=== PATIENT | female | born 1985 | race Caucasian/White ===

== ENCOUNTER 2023-03-21 14:07 | Outpatient (AMB) | payer OTHER, SELFPAY ==
--- NOTE | 2023-03-21 14:14 | MHC.OFFVIS ---
Intake Vital Signs 03/21/23 14:15 03/21/23 15:23 Height 5 ft 3 in Weight 417 lb 12.415 oz BMI 74.0 BP 132/84 Blood Pressure Location Rt brachial Position Sitting Pulse 131 H 112 H Pulse Source Pulse Oximeter Auscultation Temp 97.5 F Temp Source Skin Pulse Oximetry (%) 97 Oxygen Delivery Method Room Air Intake Visit Reasons: fm Intake Note: New patient here for fibromyalgia. Seen once by [facility] for initial visit. c/o shooting pains on legs, elbows, arms. Muscle spams on legs and arms. Rayray ankle and feet swelling. Per patient, former Cocaine user, current marijuana user for pain and anxiety . 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 She had last been seen by Mr. Demetrice joy in June of 2021. The conclusion was that she had massive morbid obesity and fibromyalgia. She was treated with meloxicam 15 mg daily and cyclobenzaprine 5-10 mg b.i.d.. She admits she only takes these episodically. Unfortunately since that visit she has gained about 70 lb. She has had massive problems with weight before. She claims to have at one point lost 100 lb. She also has some leg edema that developed a few months ago. The cause of that is somewhat unclear although she admits she does not sleep very well at night and is often sleeping in a chair. She has a 3-year-old at home. She does do her own housework but has a fiancee at home. She does get tired and short of breath with exertion. This has worsened since she has gained weight. In the past she was told she had PTSD but she is on no medication and sees no therapist currently. She describes again widespread pains. This is particularly problematic in the right shoulder. She notes pain with any pressure over that region. She also has pain in the neck, the other shoulders, elbows, hands, lower back, buttock region, knees, and feet. She has difficulty walking it sounds like mostly because of right knee pain. No injury has been noted but she thinks it is occasionally swollen. She notes chronic ankle and pedal edema over the past 6 months. The pretibial areas are tender. She does not have any breakdown of the skin or ulcerations of the legs at this point. [facility] Medical History (Updated 03/21/23 @ 15:37 by Eugene Rodríguez MD) Anxiety and depression Fibromyalgia Surgical History Hx of cholecystectomy Family History (Updated 03/16/23 @ 15:36 by Matilde Flores 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 Her weight continues to increase. Negative for appetite change, fever, chills, malaise Eyes Details: Itchy eyes at times. Occasional headache. Negative for vision change, dry eyes and dizziness ENT Details: Occasional tinnitus. Negative for hearing change, oral ulcer, nose bleeds and oral dryness. Card Details: Ankle edema as noted above. She notes occasional palpitations. Negative chest pain and recent syncope Resp Details: Some exertional dyspnea at times. She does use an inhaler which help somewhat. Negative for sputum production cough and wheezing GI Details: Negative indigestion/heartburn, nausea, abdominal pain, bowel changes, diarrhea, constipation and bloody stool. Details: Nocturia x1. History of 2 early miscarriages. Negative for dysuria, hematuria, decreased force/flow and genital discharge Skin/Breast Details: Negative for itching, rash, hives, Raynaud's symptoms, sun sensitivity, and skin cancer Neuro Details: She gets some numbness in the feet with prolonged sitting. Negative for epilepsy, palsy, stroke, changes in speech, and weakness Psych Details: Anxious at times. History of PTSD treatment in the past. Negative for current depression and stress Endo Details: Negative for polyuria and polydypsia Patrick/Lymph Details: Negative for excessive bruising or bleeding. Physical Exam Vital Signs: Last Vital Signs Temp 97.5 F 03/21/23 14:15 Pulse 112 H 03/21/23 15:23 BP 132/84 03/21/23 14:15 Pulse Ox 97 03/21/23 14:15 Oxygen Delivery Method Room Air 03/21/23 14:15 BMI result Body Mass Index 74.0 APPEARANCE: Patient in no acute distress EYES no redness, pupils equal and reactive to light, eyelids normal EARS: External ear normal, canal clear and tympanic membrane normal. NOSE/SINUS: Airflow through both nares, no nasal discharge, no bleeding THROAT: Oral mucosa moist, no ulcerations NECK: No thyromegaly or masses, no adenopathy, trachea midline. HEART: Regulrar rhythm, S1-S2 heard, no murmurs, rubs or gallops. LUNG: Clear to percussion and auscultation ABD: Normal bowel sounds, no organomegaly, masses or tenderness. EXTREMITIES: 1+ ankle and pedal edema. No breaks in the skin. There is pretibial tenderness. Slight duskiness to the anterior tibial region. She has no calf tenderness, normal peripheral pulses. NEURO: Oriented and alert x3. No focal weakness. Reflexes symmetric. Gait normal. SKIN: No inflammatory or neoplastic lesions. Normal color and turgor JOINT EXAM:.?? Cervical Spine:.? Mild pain with extremes of motion. Some cervical muscle tenderness. Thoracic Spine:.? No scoliosis.? No tenderness on palpation. Lumbar Spine:.? Alignment normal.? Mild pain with flexion at 60 degrees. Mild muscle tenderness. Chest Wall:.? No tenderness, swelling, increased warmth or erythema. Hands:.? Normal pain-free range of motion with mild tenderness across the MCP joints but I can not appreciate any swelling. There is no flexor tendon triggering, thenar atrophy or sensory loss. Other joints in the hands are without tenderness, swelling, increased warmth or erythema.th. Wrists: Slight pain with flexion extension at 75 degrees with some minimal dorsal tenderness. No appreciable swelling, increased warmth or erythema. Elbows:. Normal pain-free range of motion without tenderness, swelling, increased warmth or erythema. Shoulders:.??Right: Mild to moderate pain with abduction at 100 degrees or any attempts at internal or external rotation. Mild anterior, posterior and subacromial tenderness. No axillary adenopathy. Questionable abductor weakness without swelling. Left: Full range of motion with slight discomfort at the extremes of normal range of motion. Minimal anterior and posterior tenderness without adenopathy, weakness, swelling, increased warmth or erythema. Hips:.? Full range of motion with mild buttock pain at the extremes of normal internal or external rotation. out pain. Hip bursa:.? Mild right greater than left trochanteric tenderness. Knees:.?? Right: Mild pain with extremes of normal range of motion. There is some mild patellofemoral crepitus and mild medial and lateral tenderness without effusion, redness or warmth. Left: Slight pain with extremes of flexion or extension with some minimal patellofemoral crepitus. There is some slight medial tenderness. No effusion, swelling, increased warmth or erythema.? There is no effusion or crepitation Ankles:.?There is some pretibial edema. She has normal pain-free range of motion. There is some pretibial tenderness but no tenderness over the joint space. I do not appreciate any any joint swelling, increased warmth or erythema.Normal pain-free range of motion without tenderness, swelling, increased warmth or erythema. Feet: There is some dorsal edema over the instep which is mildly tender. She has some flatfoot deformity with some mild tenderness across the MTP joints. No breaks in the skin, redness or warmth. Tender points: Mild tenderness to digital palpation at the occiput, trapezius, second rib, lateral epicondyle, knees, greater trochanter and gluteal area bilaterally. ? Results Reviewed Results Reviewed: [facility] Result Report Patient: Sonia Knight Date of Service: 04/21/22 ? ? Patient Gender: Female Ordering Provider: Citlalli Goins : 1985 ? ? ? Final X-RAY EXAM OF LOWER SPINE WITH OBLIQUES Exam Date: 04/21/2022 10:07 AM Ordering Diagnosis: Chronic bilateral low back pain without sciatica ? EXAM: Lumbar spine x-ray ? HISTORY: Chronic low back pain. ? COMPARISON: None ? FINDINGS: ? 4 views of the lumbar spine were performed. Exam limited by patient body habitus. ? 5 lumbar type vertebral bodies. Vertebral body heights are maintained. Mild disc space narrowing from L2-3 through L4-5. Limited assessment for pars defects and facet arthropathy on the oblique views. Possible facet arthropathy at L4-5 and L5-S1. No evidence of spondylolisthesis. T-shaped radiopaque IUD in the central pelvis. ? IMPRESSION IMPRESSION: ? Limited exam. Mild degenerative changes. ? POS - [id number] ? Reading Radiologist: Electronically signed by: Ewa Carmona MD [facility] Imaging Result Report Patient: Sonia Knight Date of Service: 04/28/22 ? ? Patient Gender: Female Ordering Provider: Janet Fernandez : 1985 ? ? ? Final X-RAY KNEE 4+ VIEW WITH INJURY Exam Date: 04/28/2022 10:24 AM Ordering Diagnosis: Pain in both knees, unspecified chronicity ? EXAM: Bilateral knee x-ray ? HISTORY: Bilateral knee pain. Buckling at times. No injury. ? COMPARISON: None ? VIEWS: 4 views of both knees performed. ? FINDINGS: ? Mild joint space narrowing in the medial compartments and lateral patellofemoral joints. Tricompartment marginal spurring. No evidence of an acute fracture or malalignment. Mild right superior patellar spurring at the quadriceps attachment from enthesopathy. No destructive bone lesion. No significant joint effusion. ? IMPRESSION IMPRESSION: ? Mild degenerative changes. ? POS - [id number] ? Reading Radiologist: Electronically signed by: Ewa Carmona MD o lab work from [place]: April 2021: Rheumatoid factor less than 10, ESR 18, ESHA negative April 2022: CRP 3.53, ferritin normal, TSH 2.23, iron binding percentage 11%, transaminases normal, hemoglobin 12.1, white count 11.7, ESR 52, creatinine 0.74, CCP antibody negative, HLA B27 negative, Assessment & Plan Assessment & Plan (1) Osteoarthritis of knees, bilateral: Code(s): M17.0 - Bilateral primary osteoarthritis of knee (2) Osteoarthritis of lumbar spine: Code(s): M47.816 - Spondylosis without myelopathy or radiculopathy, lumbar region (3) Edema: Code(s): R60.9 - Edema, unspecified (4) Shoulder pain, right: Code(s): M25.511 - Pain in right shoulder (5) Fibromyalgia: Code(s): M79.7 - Fibromyalgia Plan The patient has had many years now widespread pains. Exams have not noted any signs of an active inflammatory arthritis. However last fall there was elevation of the CRP and sed rate raising the question of inflammatory disease. She claims to have had COVID 4 times so this could have been some sequelae from those infections. The many tender points however currently look like she has fibromyalgia. She is massively obese and likely has some secondary osteoarthritis in the lower back and knees. X-rays have shown early OA in those regions. She has fairly painful range of motion the right shoulder suggesting some pathology in that region, this is likely to be mechanical from previous rotator cuff problems. She is short of breath with exertion, likely related to her morbid obesity. Now she has chronic ankle edema which could be related to respiratory problems, heart disease, or even renal disease. We will check some lab work to look into the question of renal disease. She is going to pursue some weight loss regimen and has plans to follow through with that. In the meantime, assuming her kidneys are okay I think she could continue with the meloxicam. She can take the cyclobenzaprine if needed at night. She is warned that could be sedating. We will add some low-dose gabapentin to that with 100 mg capsules, gradually increasing up to 1 in the morning and 3 at night over 3 or 4 weeks. Light aerobic activity is encouraged. We will aim for follow-up in 2 or 3 months. She may need further evaluation in primary care office about the ankle edema. Review of her records at [place], today's history, today's exam, and discussion of treatment options took 45 minutes. Orders: Orders Comprehensive Met. Panel Today M79.7 - Fibromyalgia, R60.9 - Edema, unspecified C Reactive Protein Today M79.7 - Fibromyalgia, R60.9 - Edema, unspecified Thyroid Stimulating Hormone Today M79.7 - Fibromyalgia, R60.9 - Edema, unspecified Protein Creatinine Ratio, Ur Today M79.7 - Fibromyalgia, R60.9 - Edema, unspecified Complete Blood Count Auto Diff Today M79.7 - Fibromyalgia, R60.9 - Edema, unspecified Erythrocyte Sedimentation Rate Today M79.7 - Fibromyalgia, R60.9 - Edema, unspecified XR shoulder RT min 2V Today M25.511 - Pain in right shoulder Medications: New gabapentin one at night for a week, then two at night for a week, then three at night for a week, then one in AM and 3 at night 120 caps 2RF Coding Level of Care Code Est Pt Level 5 (85697) Diagnoses Osteoarthritis of knees, bilateral M17.0 Osteoarthritis of lumbar spine M47.816 Edema R60.9 Shoulder pain, right M25.511 Fibromyalgia M79.7
[2023-03-21 14:15] VITALS: BP 132/84; PULSE 131; TEMP 36.4; O2SAT 97; BMI 74.0
[2023-03-21 15:23] VITALS: PULSE 112
== END 2023-03-21 15:44 | disposition home or self-care (01) ==
PROVIDERS: PCP Internal Medicine; Visit Provider Internal Medicine Rheumatology
DX: M79.7 Fibromyalgia (principal); M17.0 Bilateral primary osteoarthritis of knee; M47.816 Spondylosis without myelopathy or radiculopathy, lumbar region; R60.9 Edema, unspecified; M25.511 Pain in right shoulder
CPT/HCPCS: 99215

== ENCOUNTER → 2023-03-21 14:07 | Outpatient (BNVA) | payer OTHER, SELFPAY | PROVIDERS: Visit Provider Internal Medicine Rheumatology | DX: M17.0 Bilateral primary osteoarthritis of knee (principal); M47.816 Spondylosis without myelopathy or radiculopathy, lumbar region; M25.511 Pain in right shoulder; M79.7 Fibromyalgia; R60.9 Edema, unspecified; Z68.45 Body mass index [BMI] 70 or greater, adult | CPT/HCPCS: 99212 ==

== ENCOUNTER 2023-10-28 16:29 | Emergency (ER) | payer OTHER, SELFPAY ==
[2023-10-28] VITALS (10 sets, daily range): BP systolic 107–134; BP diastolic 60–89; PULSE 125–142; RESP 18–29; TEMP 36.1–36.8; O2SAT 64–95; BMI 71.7
--- NOTE | ~2023-10-28 | XR_ITS ---
EXAMINATION: XR chest 1V CLINICAL INFORMATION: Reason for Exam hypoxic COMPARISON: None TECHNIQUE: Single portable frontal view. Tubes and lines: None Lungs and pleura: Both lungs are clear. Heart and mediastinum: The mediastinum is within normal limits.. Bones/soft tissue: Skeletal structures included are normal for patient's age. XR/XR chest 1V IMPRESSION: No radiographic evidence of acute cardiopulmonary disease.
--- NOTE | ~2023-10-28 | CT_ITS ---
EXAMINATION: CT CHEST ANGIOGRAM PE PROTOCOL CLINICAL INFORMATION: , Reason for Exam hypoxic, tachycardic , bed bound COMPARISON: No prior CT available. TECHNIQUE: Volumetric imaging was performed through the chest. Reformatted coronal and sagittal imaging was performed. 3-D MIP images performed at a dedicated separate workstation. This CT examination was performed using dose optimization techniques as appropriate, variously including the following: *Automated exposure control *Adjustment of mA and/or kV according to patient size (this includes techniques or standardized protocols for targeted exams where dose is matched to indication/reason for exam; i.e. extremities or head) *Use of iterative reconstruction technique CONTRAST: 100 mL of Omnipaque 350 injected DLP: [id number] FINDINGS: PULMONARY ARTERIES: There are large emboli centrally lodged in the right and left pulmonary artery, completely occluding the right pulmonary artery centrally and partially occluding many branches of the left pulmonary arteries centrally and peripherally involving , main and lobular pulmonary arteries bilaterally. Reversal of RV LV ratio suggesting cardiac strain. LINES/TUBES: None LUNGS: There is wedge-shaped opacity left lower lobe probably pulmonary infarct. AIRWAYS: Trachea and bronchi are normal. PLEURA: No pleural effusion or pneumothorax. MEDIASTINUM AND STACEY: The visualized thyroid gland is unremarkable. No mediastinal, hilar or axillary lymphadenopathy. There is no mediastinal mass. VESSELS: Thoracic aorta is normal in size. HEART AND PERICARDIUM: Heart is normal in size. There is no pericardial effusion. There are no coronary calcification. CHEST WALL, LOWER NECK, SURROUNDING SOFT TISSUES: Normal VISUALIZED ABDOMEN: Unremarkable BONES: The visualized bony thorax is within normal limits. CT/CT angio chest PE protocol IMPRESSION: 1. Positive PE. Massive PE, There are multiple large central emboli lodged in the right and left pulmonary vein and large lobular arteries, completely occluding the right pulmonary artery centrally and partially occluding many branches of the left pulmonary arteries centrally and peripherally. 2. Reversal of RV LV ratio suggesting cardiac strain. 3. Wedge-shaped opacity left lower lobe probably pulmonary infarct. This critical result was discussed with Dr. Michaels by telephone at 10/28/2023 8:30 PM and it was ascertained that the content and urgency of the report was understood at the time of direct communication.
--- NOTE | 2023-10-28 16:52 | ECG_ITS ---
Test Reason : SOB Blood Pressure : / mmHG Vent. Rate : 137 BPM Atrial Rate : 137 BPM P-R Int : 130 ms QRS Dur : 082 ms QT Int : 270 ms P-R-T Axes : 052 -03 003 degrees QTc Int : 407 ms Sinus tachycardia Low voltage QRS Cannot rule out Anterior infarct , age undetermined Abnormal ECG No previous ECGs available Referred By: Cecille Michaels Electronically Signed By:ERI FRAZIER
--- NOTE | 2023-10-28 17:15 | PC.NURSE ---
Labs drawn/sent to lab.
[2023-10-28] MEDS: 0.9 % Sodium Chloride 1,000 ML 999 ML IVCONT (17:17)
--- NOTE | 2023-10-28 17:17 | ED_ITS ---
HPI - SOB/Dyspnea General Chief Complaint: Dyspnea Stated Complaint: SOB,RA 79-81, NONREBREATHER@ 15L NOW 90% Time Seen by Provider: 10/28/23 16:35 Source: patient and EMS Mode of arrival: EMS Limitations: no limitations History of Present Illness HPI Narrative: Patient comes to the emergency room complaining of shortness of breath for 1 week. Patient states that today she got concerned because she was so short of breath that she nearly passed out. Patient denies losing consciousness, no chest pain. Patient denies any history of asthma or COPD. According to EMS, patient's oxygen saturation was in the low 70s at room air. They put her on a non-rebreather and oxygen barely increased to the high 80s. Related Data Home Medications Medication Instructions Recorded Confirmed albuterol sulfate 90 mcg/actuation 1 - 2 puff inhalation Q4-6H PRN 03/21/23 03/21/23 aerosol inhaler (ProAir HFA) cough cyclobenzaprine 10 mg tablet 5 - 10 mg PO BEDTIME PRN muscle 03/21/23 03/21/23 spasm hydroxyzine HCl 25 mg tablet 25 mg PO BEDTIME 03/21/23 03/21/23 meloxicam 15 mg tablet 15 mg PO DAILY 03/21/23 03/21/23 Previous Rx's Medication Instructions Recorded gabapentin 100 mg capsule See Rx Instructions .Route 03/21/23 .COMPLEX #120 caps Allergies Allergy/AdvReac Type Severity Reaction Status Date / Time No Known Allergies Allergy Verified 10/28/23 16:53 Review of Systems 2 Review of Systems: Constitutional : No Weight loss, No Fever, No Chills, No Night Sweats, No Fatigue, No Malaise ENT/Mouth : No Hearing loss, No Ear Pain, No Nasal Congestion, No Sinus Pain, No Hoarseness, No sore throat, No Rhinorrhea, No Swallowing Difficulty Eyes: No Eye Pain, No Swelling, No Redness, No Foreign Body, No Discharge, No Vision Changes Cardiovascular : No Chest Pain, No SOB, No Dyspnea on Exertion, No Orthopnea, No Edema, No Palpitations 1 episode of near-syncope Respiratory : Complaining of progressive shortness of breath for 1 week, no cough Gastrointestinal : No Nausea, No Vomiting, No Diarrhea, No Constipation, No abdominal Pain, No Hematochezia, No Melena Genitourinary : no irregular bleeding, No Dysuria, No Urinary Frequency, No Hematuria, No Urinary Incontinence, No Urgency, No Flank Pain, No Urinary Flow Changes, No Hesitancy Musculoskeletal : No joint pain, No Myalgias, No Joint Swelling Skin : No Skin Lesions, No rash Neuro : No Weakness, No Numbness, No Paresthesias, No Loss of Consciousness, No Dizziness, No Headache Psych : No Anxiety/Panic, No Depression, No SI/HI/AH/VH, No Social Issues, Heme/Lymph: No Bruising, No Bleeding,No Lymphadenopathy Endocrine : No Polyuria, No Polydipsia, No Temperature Intolerance [facility] Past Medical History Medical History Anxiety and depression Fibromyalgia Surgical History Hx of cholecystectomy Family History Family History (Updated 03/16/23 @ 15:36 by Matilde Flores [facility]) Mother Arthritis Type 2 diabetes mellitus Father Medical history unknown Social History Social History (Updated 03/21/23 @ 14:33 by Stas Faulkner [facility]) Household Members: Spouse and Children Housing: House Alcohol intake: current Alcohol intake frequency: holidays/special occasions only Alcohol type: wine Patient Tobacco Use Status: Former Tobacco user Smoked in Last 30 Days: No Substance Use Type: Marijuana Substance Use Frequency Other:: every other day Any prior treatment program specific to substance use: No Advance Directives: No Advance Directives Information Provided: No Patient : No Current occupational status: employed Current occupation: [employer] Physical Exam 2 Vital Signs: Vital Signs: Last Vital Signs Temp 98.1 F 10/28/23 21:42 Pulse 128 H 10/28/23 21:42 Resp 23 H 10/28/23 21:42 BP 129/81 10/28/23 21:42 Pulse Ox 92 10/28/23 21:42 O2 Del Method High Flow Nasal C annula 10/28/23 21:42 O2 Flow Rate 15 10/28/23 18:35 BMI result Body Mass Index 71.7 Const: Other: Appearance: Alert. Oriented X3. No acute distress. Eyes: Pupils equal, round and reactive to light. ENT: Pharynx normal. Neck: Normal inspection. Neck supple. No lymph nodes noted. No crepitus CVS: Normal heart rate and rhythm. Pulses normal. Normal S1 and S2 Respiratory: Patient tachypneic, no wheezing, no crackles, decreased air movement. Oxygen saturation 67% on room air Abdomen: Soft and nontender. No rigidity. No distention. Skin: Skin warm and dry. Normal skin color. Normal skin turgor. Extremities: No lower extremity edema. No Lacerations. No Rash Neuro: Oriented X 3. No motor deficit. No sensory deficit. Moving all extremities. No slurred speech. CN 2 through 12 grossly intact Psych: calm, cooperative, normal affect Course Course Course Narrative: -patient came in on 15 L nasal cannula. The oxygen was shut off for couple of minutes to transfer the patient from the EMS stretcher to her bed in the ED. In that short period of time patient's oxygen saturation dropped to 67% on room air with good pleth. Oxygen saturation improved to the high 80s/low 90s on 15 L non-rebreather. Medications Administered Generic Name Dose Route Start Last Admin Trade Name Freq PRN Reason Stop Dose Admin Heparin Sodium/Sodium Chloride 25,000 unit in 250 mls @ 0 mls/hr 10/28/23 21:15 10/28/23 21:22 Heparin Sodium,Porcine/1/2ns IVCONT 13.2 units/kg/hr .Q0M HANNAH 25 mls/hr Administration Protocol Per Protocol Discontinued Medications Generic Name Dose Route Start Last Admin Trade Name Freq PRN Reason Stop Dose Admin Cyclobenzaprine HCl 10 mg 10/28/23 19:19 10/28/23 19:34 Cyclobenzaprine Hcl 10 Mg Tablet PO 10/28/23 19:20 10 mg ONCE ONE Administration Heparin Sodium (Porcine) 10,000 unit 10/28/23 21:01 10/28/23 21:14 Heparin Sodium,Porcine 5,000 Unit/Ml Vial IVPUSH 10/28/23 21:02 10,000 unit ONCE ONE Administration Sodium Chloride 1,000 mls @ 999 mls/hr 10/28/23 16:52 10/28/23 19:30 Ns IVCONT 10/28/23 17:52 Infused .Q1H1M ONE Infusion Iohexol 100 ml 10/28/23 18:34 10/28/23 18:34 Iohexol 350 Mg/Ml 100 Ml Infus..Btl IV 10/28/23 18:35 100 ml ONCE ONE Administration Lorazepam 1 mg 10/28/23 21:31 10/28/23 21:39 Lorazepam 2 Mg/Ml Vial IVPUSH 10/28/23 21:32 1 mg ONCE ONE Administration Medical Decision Making Medical Decision Making [facility] Narrative: -my interpretation of labs: Hematology shows a white blood cell count of 14.4, D-dimer is elevated, 860, normal chemistry, lactic acid 2.2. Troponin bumped 68.5 likely secondary to prolonged hypoxia, BNP normal, serology negative for influenza RSV and COVID -my interpretation of chest x-ray, no obvious infiltrate or pulmonary edema -at this time, 19:28, there is no clear source of patient's infection, chest x- ray is negative for infiltrates or pneumonia, serology is negative. Patient has no fever -CT scan to rule out pulmonary embolism pending -patient remains saturating in the low 90s at 15 L, patient was switched to a non-rebreather. Patient's oxygen saturation in the mid 90s on high-flow. -my interpretation of CT scan: Large Bilateral PEs -I discussed the CT scan with Dr. Limon from Radiology, patient has a massive pulmonary embolism, multiple large central emboli large in the right and left pulmonary vein and large lobular arteries completely occluding the right pulmonary artery centrally and partially occluding the main branches of the left pulmonary artery centrally and peripherally also, patient has a left lower lobe pulmonary infarct -patient was started on heparin -I discussed the patient with Dr. Mcfarlane from the ICU, patient's blood pressure is holding up well, 122/77, at this time, TNK is no recommended. However, it is recommended to transfer the patient to a hospital where they have IR for an intra arterial catheter placement/intervention radiology for a lytic procedure. -[facility], [facility], [facility], [place] all closed for transfers. Waiting for call back from [facility] -I discussed with the patient that she will likely need to be transferred to [place], patient agreeable to go anywhere for treatment. -last set of vitals obtained at 21:10: Blood pressure 107/89, heart rate 125, respirations 24, temperature 98.3 degrees, oxygen saturation 90% on high-flow at 100%O2, 40 L -patient is awake, alert and oriented x3 -patient feeling very anxious, requesting medication. Patient given 1 mg IV of Ativan -radiology will be burning CD with patient's imaging -there is an ICU bed available in the [facility] in [place], [place] -I spoke with Dr. Mireles from the ICU, patient being accepted. -patient has heparin running, patient will be going on a non-rebreather mask at 15 L. -we switch the patient to 15 L non-rebreather, patient's oxygen saturation is 94%, patient is tolerating well the non-rebreather. Patient should arrive to the [facility] in about 45 minutes. Differential Diagnosis Differential Diagnoses: The differential diagnosis associated with the presentation includes (Pulmonary embolism, pneumonia, COVID, influenza, RSV) Admission/Observation Consideration of admission/observation: Escalation of care including admission/observation considered (Patient is very hypoxic on room air, patient needs to be admitted) Consult Healthcare Provider Management of the patient was discussed with: Hospitalist Lab Data MDM Lab Attestation statement: I reviewed the patient's lab results. 10/28/23 17:09 10/28/23 17:09 Labs: Lab Results 10/28/23 10/28/23 10/28/23 Range/Units 17:09 17:15 19:27 WBC 14.4 H (4.8-10.8) X10*3/uL RBC 4.67 (4.20-5.50) X10*6/uL Hgb 12.2 (12.0-16.0) g/dl Hct 38.1 (37.0-47.0) % MCV 81.6 (80.0-98.0) fL MCH 26.1 L (27.0-33.0) pg MCHC 32.0 (31.0-35.0) g/dl RDW 15.6 (11.0-16.0) % Plt Count 299 (160-400) X10*3/uL MPV 9.6 (9.4-12.3) fL Immature Gran % (Auto) 0.5 H (0.0-0.4) % Neut % (Auto) 83.7 H (45-73) % Lymph % (Auto) 10.9 L (20-40) % Sampson % (Auto) 4.1 (2-11) % Eos % (Auto) 0.6 (0-4) % Baso % (Auto) 0.2 (0-2) % Lymph # (Auto) 1.6 (1.2-4.9) X10*3/uL Sampson # (Auto) 0.6 (0.1-1.2) X10*3/uL Eos # (Auto) 0.1 (0.0-0.4) X10*3/uL Baso # (Auto) 0.0 (0.0-0.2) X10*3/uL Abs Immat Gran (auto) 0.07 H (0.00-0.03) X10*3/uL Absolute Neuts (auto) 12.1 H (2.0-8.3) x10*3/uL Absolute Nucleated RBC 0.000 (0.0-0.012) X10*3/uL Nucleated RBC % (auto) 0.0 (0.0-0.2) /100WBC PT 13.8 H (11.1-13.3) SEC INR 1.1 (0.9-1.1) APTT (26.0-36.8) SEC D-Dimer High Sensitivty 860 NG/ML VBG pH 7.44 H (7.32-7.43) VBG pCO2 39 mmHg VBG pO2 40 mmHg VBG HCO3 27 H (22-26) mmol/L VBG O2 Saturation 61.0 % VBG Base Excess 3.3 mmol/L Sodium 140 (135-145) mmol/L Potassium 4.1 (3.3-5.1) mmol/L Chloride 105 (96-108) mmol/L Carbon Dioxide 24 (22-29) mmol/L Anion Gap 15 (12-20) BUN 17 H (9-16) mg/dL Creatinine 1.03 (0.5-1.4) mg/dL Estim Creat Clear Calc 130.6 Estimated GFR > 60 Random Glucose 165 H (60-115) mg/dL Lactic Acid 2.2 H* (0.5-2.0) mmol/L Lactic Acid F/U @ 2Hr 1.4 (0.5-2.0) mmol/L Calcium 9.5 (8.4-10.2) mg/dL Total Bilirubin 0.4 (0.0-1.0) mg/dL Direct Bilirubin 0.2 (0.0-0.5) mg/dL AST 24 (5-31) U/L ALT 28 (0-31) U/L Alkaline Phosphatase 89 (39-117) U/L Troponin I High Sens 68.5 H* (<3.5-17.0) ng/L B-Natriuretic Peptide 70 (<100) pg/mL Total Protein 7.7 (6.5-8.0) g/dL Albumin 4.2 (3.5-5.0) g/dL Influenza Type A (PCR) NEGATIVE (Negative) Influenza Type B (PCR) NEGATIVE (Negative) RSV RNA Qual (PCR) NEGATIVE (Negative) SARS-CoV-2 RNA (RT-PCR) NEGATIVE (Negative) 10/28/23 Range/Units 20:53 WBC (4.8-10.8) X10*3/uL RBC (4.20-5.50) X10*6/uL Hgb (12.0-16.0) g/dl Hct (37.0-47.0) % MCV (80.0-98.0) fL MCH (27.0-33.0) pg MCHC (31.0-35.0) g/dl RDW (11.0-16.0) % Plt Count (160-400) X10*3/uL MPV (9.4-12.3) fL Immature Gran % (Auto) (0.0-0.4) % Neut % (Auto) (45-73) % Lymph % (Auto) (20-40) % Sampson % (Auto) (2-11) % Eos % (Auto) (0-4) % Baso % (Auto) (0-2) % Lymph # (Auto) (1.2-4.9) X10*3/uL Sampson # (Auto) (0.1-1.2) X10*3/uL Eos # (Auto) (0.0-0.4) X10*3/uL Baso # (Auto) (0.0-0.2) X10*3/uL Abs Immat Gran (auto) (0.00-0.03) X10*3/uL Absolute Neuts (auto) (2.0-8.3) x10*3/uL Absolute Nucleated RBC (0.0-0.012) X10*3/uL Nucleated RBC % (auto) (0.0-0.2) /100WBC PT 14.0 H (11.1-13.3) SEC INR 1.2 H (0.9-1.1) APTT 31.2 (26.0-36.8) SEC D-Dimer High Sensitivty NG/ML VBG pH (7.32-7.43) VBG pCO2 mmHg VBG pO2 mmHg VBG HCO3 (22-26) mmol/L VBG O2 Saturation % VBG Base Excess mmol/L Sodium (135-145) mmol/L Potassium (3.3-5.1) mmol/L Chloride (96-108) mmol/L Carbon Dioxide (22-29) mmol/L Anion Gap (12-20) BUN (9-16) mg/dL Creatinine (0.5-1.4) mg/dL Estim Creat Clear Calc Estimated GFR Random Glucose (60-115) mg/dL Lactic Acid (0.5-2.0) mmol/L Lactic Acid F/U @ 2Hr (0.5-2.0) mmol/L Calcium (8.4-10.2) mg/dL Total Bilirubin (0.0-1.0) mg/dL Direct Bilirubin (0.0-0.5) mg/dL AST (5-31) U/L ALT (0-31) U/L Alkaline Phosphatase (39-117) U/L Troponin I High Sens (<3.5-17.0) ng/L B-Natriuretic Peptide (<100) pg/mL Total Protein (6.5-8.0) g/dL Albumin (3.5-5.0) g/dL Influenza Type A (PCR) (Negative) Influenza Type B (PCR) (Negative) RSV RNA Qual (PCR) (Negative) SARS-CoV-2 RNA (RT-PCR) (Negative) Independent Interpretation I performed an independent interpretation of an: EKG (My interpretation of EKG: Sinus tachycardia, heart rate 137, no ST segment depression or elevation, no T- wave inversion, QTC 407) and Plain X-Ray Radiology Impression Discussion of test interpretation with radiology: I have reviewed the radiologist's reading. Radiologist Impression: Lungs and pleura: Both lungs are clear. Heart and mediastinum: The mediastinum is within normal limits.. Bones/soft tissue: Skeletal structures included are normal for patient's age. XR/XR chest 1V IMPRESSION: No radiographic evidence of acute cardiopulmonary disease. Critical Care Time Critical Care Time Critical Care Time: Yes Total Critical Care Time: 120 Attestation: I have personally provided critical care time. Time includes review of lab data, radiology results, discussion with consultants, and monitoring for potential decompensation. Intervention performed as documented. Discharge Plan Discharge Clinical Impression: Acute saddle pulmonary embolus Patient Disposition: [facility] Transfer Details: [facility], ICU, Dr. Mireles Prescriptions: No Action meloxicam 15 mg tablet 15 mg PO DAILY cyclobenzaprine 10 mg tablet 5 - 10 mg PO BEDTIME PRN (Reason: muscle spasm) hydroxyzine HCl 25 mg tablet 25 mg PO BEDTIME albuterol sulfate [ProAir HFA] 90 mcg/actuation HFA aerosol inhaler 1 - 2 puff inhalation Q4-6H PRN (Reason: cough) gabapentin 100 mg capsule See Rx Instructions .ROUTE .COMPLEX Qty: 120 2RF Rx Instructions: one at night for a week, then two at night for a week, then three at night for a week, then one in AM and 3 at night
[2023-10-28 17:18] LABS: MANUAL DIFF FLAG NO
[2023-10-28 17:19] LABS: Basophils Percent Auto 0.2 % (0-2); Eosinophils Absolute Auto 0.1 X10*3/uL (0.0-0.4); Eosinophils Percent Auto 0.6 % (0-4); Hematocrit 38.1 % (37.0-47.0); Hemoglobin 12.2 g/dl (12.0-16.0); Imm Gran Abs Auto 0.07 X10*3/uL (0.00-0.03); Imm Gran Pct Auto 0.5 % (0.0-0.4); Lymphocytes Absolute Auto 1.6 X10*3/uL (1.2-4.9); Lymphocytes Percent Auto 10.9 % (20-40); Mean Corpuscular Hemoglobin 26.1 pg (27.0-33.0); Mean Corpuscular Volume 81.6 fL (80.0-98.0); Mean Platelet Volume 9.6 fL (9.4-12.3); Monocytes Absolute Auto 0.6 X10*3/uL (0.1-1.2); Monocytes Percent Auto 4.1 % (2-11); Neutrophils Absolute Auto 12.1 x10*3/uL (2.0-8.3); Neutrophils Percent Auto 83.7 % (45-73); Platelet Count 299 X10*3/uL (160-400); Red Blood Count 4.67 X10*6/uL (4.20-5.50); Red Cell Distribution Width 15.6 % (11.0-16.0); White Blood Count 14.4 X10*3/uL (4.8-10.8)
[2023-10-28 17:23] LABS: VBG Base Excess 3.3 mmol/L; VBG HCO3 27 mmol/L (22-26); VBG pCO2 39 mmHg; VBG pH 7.44 (7.32-7.43); VBG pO2 40 mmHg
--- NOTE | 2023-10-28 17:23 | PC.NURSE ---
Xray at bedside.
[2023-10-28 17:25] LABS: Venous Blood Gas Refer to POC result
[2023-10-28 17:31] LABS: Lactic Acid 2.2 mmol/L (0.5-2.0)
[2023-10-28 17:33] LABS: Alanine Aminotransferase 28 U/L (0-31); Albumin Level 4.2 g/dL (3.5-5.0); Alkaline Phosphatase 89 U/L (39-117); Anion Gap 15 (12-20); Aspartate Amino Transferase 24 U/L (5-31); Bilirubin Direct 0.2 mg/dL (0.0-0.5); Bilirubin Total 0.4 mg/dL (0.0-1.0); Blood Urea Nitrogen 17 mg/dL (9-16); Calcium 9.5 mg/dL (8.4-10.2); Carbon Dioxide 24 mmol/L (22-29); Chloride 105 mmol/L (96-108); Creatinine Clr Calc Pharmacy 130.6; Estimated Glomerular Filt Rate > 60; Glucose Random 165 mg/dL (60-115); Potassium 4.1 mmol/L (3.3-5.1); Sodium 140 mmol/L (135-145); Total Protein 7.7 g/dL (6.5-8.0)
[2023-10-28 17:36] LABS: INTERNATIONAL NORM RATIO 1.1 (0.9-1.1); Prothrombin Time 13.8 SEC (11.1-13.3)
[2023-10-28 17:38] LABS: B Type Natriuretic Peptide 70 pg/mL (<100); D Dimer High Sensitivity 860 NG/ML
[2023-10-28 17:41] LABS: Troponin-I High Sensitivity 68.5 ng/L (<3.5-17.0)
[2023-10-28 18:00] LABS: Influenza A PCR NEGATIVE (Negative); Influenza B PCR NEGATIVE (Negative); Resp Syncy Virus RNA Qual PCR NEGATIVE (Negative); SARS COV2 PCR INHOUSE NEGATIVE (Negative)
[2023-10-28] MEDS: iohexoL 350 MG/ML 100 ML INFUS..BTL IV (18:34)
[2023-10-28 19:15] LABS: Reflex Lactate? Lactic Acid Added
[2023-10-28] MEDS: Cyclobenzaprine HCl 10 MG TABLET PO (19:34)
--- NOTE | 2023-10-28 19:37 | PC.NURSE ---
RT at bedside, patient placed high flow cannula, O2 Sat 87-90%.
[2023-10-28 19:40] LABS: ~Lactic Acid-LAB USE ONLY 1.4 mmol/L (0.5-2.0)
[2023-10-28 21:03] LABS: INTERNATIONAL NORM RATIO 1.2 (0.9-1.1)
[2023-10-28 21:05] LABS: Partial Thromboplastin Time 31.2 SEC (26.0-36.8)
[2023-10-28] MEDS: Heparin Sodium,Porcine 5,000 UNIT/ML VIAL 10000 UNIT IVPUSH (21:14)
[2023-10-28] MEDS: Heparin Sodium,Porcine/1/2NS 25,000 UNIT/250 ML IV.SOLN 25 UNIT IVCONT (21:22)
[2023-10-28] MEDS: LORazepam 2 MG/ML VIAL 1 MG IVPUSH (21:39)
--- NOTE | 2023-10-28 22:13 | PC.NURSE ---
Patient placed on non-re breather mask for transportation, tolerating well RR 24, O2 Sat 94-95% on 15 LPM.
--- NOTE | 2023-10-28 22:42 | PC.NURSE ---
Nurse to nurse report given to GARETH Oden [facility] ICU.
== END 2023-10-28 22:45 | disposition short-term general hospital (02) ==
PROVIDERS: Emergency Provider Emergency Medicine; PCP Internal Medicine
DX: I26.92 Saddle embolus of pulmonary artery without acute cor pulmonale (principal); Z11.52 Encounter for screening for COVID-19; Z20.828 Contact with and (suspected) exposure to other viral communicable diseases
CPT/HCPCS: 0241U; 36415; 71045; 71275; 80048; 80076; 82803; 83605; 83880; 84484; 85025; 85379; 85610; 85730; 87040; 87147; 87205; 93005; 96361; 96374; 96375; 99285; J1644; J2060; Q9967

== ENCOUNTER → 2023-10-28 16:52 | Outpatient (BNV) | payer OTHER, SELFPAY | PROVIDERS: Emergency Provider Emergency Medicine; PCP Internal Medicine; Visit Provider Internal Medicine | DX: R00.0 Tachycardia, unspecified (principal); R94.31 Abnormal electrocardiogram [ECG] [EKG] | CPT/HCPCS: 93010 ==